=== PATIENT | male | born 1980 | race Two or more races ===

== ENCOUNTER 2022-05-30 13:39 | Inpatient (IN) | payer MEDICAID ==
[~2022-05-30] VITALS: Ht 175.3 cm; Wt 71.3 kg
[2022-05-30 14:45] LABS: AMPHET/METH SCREEN,URINE POSITIVE (NEGATIVE); BARBITURATE SCREEN, URINE NEGATIVE (NEGATIVE); BENZODIAZEPINES SCREEN,URINE NEGATIVE (NEGATIVE); CANNABINOID SCREEN,URINE POSITIVE (NEGATIVE); COCAINE SCREEN,URINE NEGATIVE (NEGATIVE); METHADONE SCREEN, URINE NEGATIVE (NEGATIVE); OPIATE SCREEN,URINE NEGATIVE (NEGATIVE)
[2022-05-30 14:47] LABS: PHENCYCLIDINE SCREEN,URINE NEGATIVE (NEGATIVE)
[2022-05-30] MEDS ORDERED: HALOPERIDOL 5 MG TABLET PO PRN (18:15)
[2022-05-30] MEDS ORDERED: ZOLPIDEM TARTRATE 10 MG TABLET PO PRN (18:15)
[2022-05-30 18:28] LABS: COVID AG,FIA SOURCE NASAL SWAB
[2022-05-31 00:21] VITALS: BP 129/76
[2022-05-31 09:11] VITALS: BP 122/69
[2022-05-31 16:01] VITALS: BP 114/76
[2022-05-31] MEDS: LORazepam 2 MG TABLET PO PRN (17:12)
[2022-05-31] MEDS: RisperiDONE 2 MG TABLET PO SCH (17:12)
[2022-05-31] MEDS ORDERED: ALBUTEROL SULFATE HFA 90 MCG/PUFF 8 GM INHALER IH PRN (20:45)
[2022-05-31] MEDS ORDERED: DOCUSATE SODIUM 100 MG CAPSULE PO PRN (20:45)
[2022-05-31] MEDS ORDERED: PETROLATUM,WHITE 28 GM JELLY TP PRN (20:45)
[2022-05-31] MEDS ORDERED: IBUPROFEN 600 MG TABLET PO PRN (20:45)
[2022-05-31] MEDS ORDERED: ONDANSETRON HCL 4 MG TABLET PO PRN (20:45)
[2022-05-31] MEDS ORDERED: BENZOCAINE/MENTHOL LOZENGE PO PRN (20:45)
[2022-05-31] MEDS ORDERED: MAG HYDROX/AL HYDROX/SIMETH ES 30 ML SUSPENSION UDCUP PO PRN (20:45)
[2022-05-31] MEDS ORDERED: CloNIDine HCL 0.1 MG TABLET PO PRN (20:45)
[2022-05-31] MEDS ORDERED: MAGNESIUM HYDROXIDE SUSPENSION 30 ML UDCUP PO PRN (20:45)
[2022-05-31] MEDS ORDERED: OMEPRAZOLE 20 MG CAPSULE PO PRN (20:45)
[2022-05-31] MEDS ORDERED: BACITRACIN 28 GM OINTMENT TP PRN (20:45)
[2022-05-31] MEDS ORDERED: ACETAMINOPHEN 325 MG TABLET PO PRN (20:45)
[2022-05-31] MEDS ORDERED: LOPERAMIDE HCL 2 MG CAPSULE PO PRN (20:45)
[2022-06-01] MEDS: RisperiDONE 2 MG TABLET PO SCH ×2 (08:14→16:57)
[2022-06-01 08:19] VITALS: BP 121/74
[2022-06-01] MEDS: LORazepam 2 MG TABLET PO PRN (16:58)
[2022-06-01 20:28] VITALS: BP 132/72
[2022-06-02 08:06] VITALS: BP 112/56
[2022-06-02] MEDS: RisperiDONE 2 MG TABLET PO SCH (08:07)
[2022-06-02] MEDS ORDERED: RISP2TAB76 PO (08:47)
== END 2022-06-02 14:00 | disposition home or self-care (01) | DRG 775 ==
LOC: EMS 13:41 → B3A 21:04
PROVIDERS: ADMIT Psychiatry & Neurology Psychiatry; ATTEND Psychiatry & Neurology Psychiatry
DX: F19.959 Other psychoactive substance use, unspecified with psychoactive substance-induced psychotic disorder, unspecified (principal); F10.10 Alcohol abuse, uncomplicated; R45.850 Homicidal ideations; Z20.822 Contact with and (suspected) exposure to COVID-19; F17.210 Nicotine dependence, cigarettes, uncomplicated; J44.9 Chronic obstructive pulmonary disease, unspecified; G47.00 Insomnia, unspecified; K59.00 Constipation, unspecified; K21.9 Gastro-esophageal reflux disease without esophagitis; F20.9 Schizophrenia, unspecified; Y90.9 Presence of alcohol in blood, level not specified; F41.9 Anxiety disorder, unspecified
CPT/HCPCS: 99285

== ENCOUNTER 2024-06-09 21:59 | Inpatient (IN) | payer MEDICAID ==
[~2024-06-09 21:59] MED LIST: RISP2TAB76 PO
[2024-06-09] MEDS ORDERED: ZOLPIDEM TARTRATE 10 MG TABLET PO PRN (22:15)
[2024-06-09] MEDS ORDERED: HALOPERIDOL 5 MG TABLET PO PRN (22:15)
[2024-06-09] MEDS ORDERED: LORazepam 2 MG TABLET PO PRN (22:15)
[2024-06-09] MEDS ORDERED: DiphenhydrAMINE HCL 50 MG/ML VIAL ONE (22:53)
[2024-06-09] MEDS ORDERED: HALOPERIDOL LACTATE 5 MG/ML VIAL ONE (22:54)
[2024-06-09] MEDS ORDERED: LORazepam 2 MG/ML VIAL ONE (22:54)
[2024-06-09] MEDS: DiphenhydrAMINE HCL 50 MG/ML VIAL IM ONE (22:59)
[2024-06-09] MEDS: LORazepam 2 MG/ML VIAL IM ONE (23:00)
[2024-06-09] MEDS: HALOPERIDOL LACTATE 5 MG/ML VIAL IM ONE (23:00)
[2024-06-10 02:27] VITALS: BP 110/72; PULSE 50; RESP 18; TEMP 97.8; O2SAT 100
[2024-06-10] MEDS ORDERED: DOCUSATE SODIUM 100 MG CAPSULE PO PRN (11:30)
[2024-06-10] MEDS ORDERED: ALBUTEROL SULFATE HFA 90 MCG/PUFF 8 GM INHALER IH PRN (11:30)
[2024-06-10] MEDS ORDERED: GuaiFENesin/D-METHORPHAN [SUGAR-FREE] 200-20MG/10 ML SYRUP UDCUP PO PRN (11:30)
[2024-06-10] MEDS ORDERED: ONDANSETRON HCL 4 MG TABLET PO PRN (11:30)
[2024-06-10] MEDS ORDERED: LOPERAMIDE HCL 2 MG CAPSULE PO PRN (11:30)
[2024-06-10] MEDS ORDERED: MAG HYDROX/ALUMINUM HYD/SIMETH ES 30 ML SUSPENSION UDCUP PO PRN (11:30)
[2024-06-10] MEDS ORDERED: CloNIDine HCL 0.1 MG TABLET PO PRN (11:30)
[2024-06-10] MEDS ORDERED: ACETAMINOPHEN 325 MG TABLET PO PRN (11:30)
[2024-06-10] MEDS ORDERED: MAGNESIUM HYDROXIDE SUSPENSION 30 ML UDCUP PO PRN (11:30)
[2024-06-10] MEDS ORDERED: NICOTINE 14 MG/24 HOUR PATCH TD PRN (11:30)
[2024-06-10] MEDS ORDERED: PETROLATUM,WHITE 28 GM JELLY TP PRN (11:30)
== END 2024-06-10 13:02 | disposition short-term general hospital (02) | DRG 750 ==
LOC: B3A 22:33
PROVIDERS: ADMIT Psychiatry & Neurology Psychiatry; ATTEND Psychiatry & Neurology Psychiatry
DX: F20.9 Schizophrenia, unspecified (principal); Z20.822 Contact with and (suspected) exposure to COVID-19
CPT/HCPCS: J1200; J1630; J2060

== ENCOUNTER 2024-06-10 03:13 | Inpatient (IN) | payer MEDICAID, OTHER ==
[~2024-06-10] VITALS: Ht 182.9 cm; Wt 74.0 kg
[2024-06-10 04:57] LABS: COVID AG,FIA SOURCE NASAL SWAB
[2024-06-10 04:59] LABS: BASOPHILS % (AUTO) 0.6 % (0.0-2.0); EOSINOPHILS % (AUTO) 2.2 % (1.0-6.0); HEMATOCRIT 37.4 % (41-53); LYMPHOCYTES % (AUTO) 34.8 % (22.0-44.0); MEAN CORPUSCULAR HEMOGLOBIN 29.4 pg (26.0-34.0); MEAN CORPUSCULAR HGB CONC 32.1 G/dL (31.0-37.0); MEAN CORPUSCULAR VOLUME 92 fL (80-100); MONOCYTES # (AUTO) 0.4 K/uL (0.1-1.0); MONOCYTES % (AUTO) 7.4 % (2.0-9.0); NEUTROPHILS # (AUTO) 3.2 K/uL (1.8-7.7); PLATELET COUNT (AUTO) 275 K/uL (150-450); RED BLOOD CELL COUNT(AUTO) 4.08 MIL/uL (4.50-5.90); RED CELL DISTRIBUTION WIDTH 14.6 % (11.5-14.5); WHITE BLOOD COUNT (AUTO) 5.8 K/uL (4.5-11.0)
[2024-06-10 05:10] LABS: ANION GAP 2 mmol/L (8-16); CALCIUM, TOTAL 8.1 mg/dL (8.8-10.5); CARBON DIOXIDE 32 mmol/L (22-29); CHLORIDE 103 mmol/L (98-107); CREATININE 0.79 mg/dL (0.60-1.30); GLOMERULAR FILTR. RATE CALC > 60 mL/min (>60); GLUCOSE,RANDOM 90 mg/dL (70-110); POTASSIUM 3.6 mmol/L (3.5-5.1); SODIUM SERUM 137 mmol/L (136-145); UREA NITROGEN, BLOOD 15 mg/dL (7-18)
[2024-06-10 05:14] LABS: SARS-COV2 (COVID) ANTIGEN,FIA Negative (Negative)
[2024-06-10 05:17] LABS: ALCOHOL, BLOOD (SERUM) < 3 mg/dL (0-10)
[2024-06-10 06:05] LABS: PHOSPHORUS 3.9 mg/dL (2.5-4.9)
[2024-06-10] MEDS ORDERED: ONDANSETRON HCL 4 MG/2 ML VIAL IVP PRN (06:30)
[2024-06-10] MEDS ORDERED: KETOROLAC TROMETHAMINE 30 MG/ML VIAL IVP PRN (06:30)
[2024-06-10] MEDS: SODIUM CHLORIDE 0.9% 1,000 ML IV SCH (07:55)
[2024-06-10 10:24] LABS: ALCOHOL, URINE DRUG SCREEN NEGATIVE (NEGATIVE); AMPHET/METH SCREEN,URINE POSITIVE (NEGATIVE); BARBITURATE SCREEN, URINE NEGATIVE (NEGATIVE); BENZODIAZEPINES SCREEN,URINE NEGATIVE (NEGATIVE); CANNABINOID SCREEN,URINE NEGATIVE (NEGATIVE); COCAINE SCREEN,URINE NEGATIVE (NEGATIVE); METHADONE SCREEN, URINE NEGATIVE (NEGATIVE); OPIATE SCREEN,URINE NEGATIVE (NEGATIVE); PHENCYCLIDINE SCREEN,URINE NEGATIVE (NEGATIVE)
[2024-06-10 12:20] VITALS: BP 119/78; PULSE 47; RESP 17; TEMP 97.5
[2024-06-10 16:51] VITALS: BP 108/67; PULSE 51; RESP 17; TEMP 97.9
[2024-06-10 20:14] VITALS: BP 101/61; PULSE 53; RESP 18; TEMP 97.7
[2024-06-10] MEDS ORDERED: KETOROLAC TROMETHAMINE 15 MG/ML VIAL IVP PRN (20:45)
[2024-06-11 00:42] VITALS: BP 124/72; PULSE 59; RESP 18; TEMP 98
[2024-06-11 04:59] VITALS: BP 129/68; PULSE 52; RESP 18; TEMP 98
[2024-06-11 07:00] LABS: BASOPHILS % (AUTO) 0.8 % (0.0-2.0); EOSINOPHILS % (AUTO) 2.9 % (1.0-6.0); HEMATOCRIT 39.1 % (41-53); HEMOGLOBIN 12.8 g/dL (13.5-17.5); LYMPHOCYTES # (AUTO) 1.5 K/uL (1.0-4.8); LYMPHOCYTES % (AUTO) 32.2 % (22.0-44.0); MEAN CORPUSCULAR HEMOGLOBIN 29.9 pg (26.0-34.0); MEAN CORPUSCULAR HGB CONC 32.8 G/dL (31.0-37.0); MEAN CORPUSCULAR VOLUME 91 fL (80-100); MONOCYTES # (AUTO) 0.2 K/uL (0.1-1.0); MONOCYTES % (AUTO) 5.1 % (2.0-9.0); NEUTROPHILS # (AUTO) 2.8 K/uL (1.8-7.7); PLATELET COUNT (AUTO) 263 K/uL (150-450); RED BLOOD CELL COUNT(AUTO) 4.29 MIL/uL (4.50-5.90); RED CELL DISTRIBUTION WIDTH 14.8 % (11.5-14.5); WHITE BLOOD COUNT (AUTO) 4.7 K/uL (4.5-11.0)
[2024-06-11 07:05] LABS: ANION GAP 10 mmol/L (8-16); CARBON DIOXIDE 25 mmol/L (22-29); CHLORIDE 104 mmol/L (98-107); CREATININE 0.76 mg/dL (0.60-1.30); GLOMERULAR FILTR. RATE CALC > 60 mL/min (>60); GLUCOSE,RANDOM 69 mg/dL (70-110); POTASSIUM 3.8 mmol/L (3.5-5.1); SODIUM SERUM 139 mmol/L (136-145); UREA NITROGEN, BLOOD 8 mg/dL (7-18)
[2024-06-11 07:50] VITALS: BP 116/75; PULSE 57; RESP 18; TEMP 97.7
[2024-06-11] MEDS: HEPARIN SODIUM,PORCINE 5,000 UNITS/ML VIAL SQ SCH (08:40)
[2024-06-11] MEDS ORDERED: DEXTROSE 5%-0.9% SODIUM CHL 1,000 ML IV ONE (10:00)
[2024-06-11 11:36] LABS: GLUCOMETER DEV NAME(LOC) 5N.1D; GLUCOSE,POINT OF CARE 157 MG/DL (70-110)
[2024-06-11 12:00] VITALS: RESP 18
[2024-06-11 15:28] VITALS: BP 126/72; PULSE 57; RESP 18; TEMP 98
[2024-06-11 19:27] VITALS: BP 118/68; PULSE 66; RESP 20; TEMP 98
[2024-06-12 04:45] VITALS: BP 127/72; PULSE 54; RESP 18; TEMP 98.5
[2024-06-12 08:21] VITALS: BP 109/71; PULSE 60; RESP 18; TEMP 98.3
[2024-06-12 15:10] VITALS: BP 132/66; PULSE 58; RESP 18; TEMP 98.4
[2024-06-12 20:00] VITALS: BP 121/69; PULSE 60; RESP 18; TEMP 98.6
[2024-06-13 05:11] VITALS: BP 126/67; PULSE 54; RESP 18; TEMP 98.1
[2024-06-13 08:54] VITALS: BP 101/53; PULSE 69; RESP 18; TEMP 98.7
[2024-06-13 15:39] VITALS: BP 107/79; PULSE 70; RESP 18; TEMP 97.8
== END 2024-06-13 17:30 | disposition home or self-care (01) | DRG 347 ==
LOC: EMS 03:13 → EDH 06:37 → 5S 11:58 → 6S 06-11 15:00
PROVIDERS: ADMIT Internal Medicine; ATTEND Internal Medicine
DX: S12.590A Other displaced fracture of sixth cervical vertebra, initial encounter for closed fracture (principal); G92.8 Other toxic encephalopathy; E87.3 Alkalosis; F20.0 Paranoid schizophrenia; R45.851 Suicidal ideations; R00.1 Bradycardia, unspecified; E16.2 Hypoglycemia, unspecified; F15.10 Other stimulant abuse, uncomplicated; F17.210 Nicotine dependence, cigarettes, uncomplicated; Z20.822 Contact with and (suspected) exposure to COVID-19; X58.XXXA Exposure to other specified factors, initial encounter; Y93.89 Activity, other specified; Y92.89 Other specified places as the place of occurrence of the external cause; Y99.8 Other external cause status; Z59.00 Homelessness unspecified; Z79.899 Other long term (current) drug therapy; Y08.89XA Assault by other specified means, initial encounter
CPT/HCPCS: 70360; 70450; 70486; 71045; 72125; 80048; 80307; 82962; 83735; 84100; 85025; 93005; 99285; G0480; J1644; J7030; 36415-L1; 36415-TC